=== PATIENT | female | born 1960 | race Caucasian/White ===

== ENCOUNTER 2016-03-24 16:49 | Inpatient (IN) | payer BC ==
[~2016-03-24] VITALS: Ht 162.6 cm; Wt 85.7 kg
--- NOTE | ~2016-03-24 | CO ---
ADMIT: 03/24/2016 RM/LOC: 510 [facility] MR#: [id number] [id number] [address] [address] AJ WIL[place] [phone] Consultation SEX: F AGE: 55 : 1960 DATE OF CONSULTATION: 03/25/2016 ATTENDING PHYSICIAN: Brad Abraham CONSULTING PHYSICIAN: Garo Gallegos DPM CHIEF COMPLAINT: Fever, chills, and ulceration of the feet bilaterally. HISTORY OF PRESENT ILLNESS: This patient is a 55-year-old diabetic female, who presented to [facility] with fever and chills, and the patient has had an episodic history of ulceration of the foot bilaterally. Approximately 1 to 2 years ago, the patient had apparently an acute Charcot event causing deformity of her foot. Since then, she has had plantar foot pain, left greater than right and subsequent ulceration. The patient states that approximately 2 to 3 weeks ago she developed the ulceration of the left foot and 1 month ago the ulcerations of the digits of the right foot. She believes they are looking better, but she has had significant issue with malaise and pain, and she also noticed a malodor to the left foot. She presented to the clinic and then was subsequently admitted. PAST MEDICAL HISTORY: Diabetes, hypothyroidism, congestive heart failure, hyperlipidemia, obesity, neuropathy, and chronic kidney disease. SOCIAL HISTORY: The patient works in a cafeteria. She is . She denies any tobacco or alcohol abuse. FAMILY HISTORY: Noncontributory. ALLERGIES: NO KNOWN DRUG ALLERGIES. MEDICATIONS: Please see the current list of her medications. LABORATORY DATA: Sodium 138, potassium 4.4, BUN 12, and creatinine 0.9. White count 8.1, hemoglobin 8.2, hematocrit 26.7, and platelets 404. Arterial and venous studies show no acute blockages or DVT. Culture shows multiple organisms on Gram stain. PHYSICAL EXAMINATION: VITAL SIGNS: Vital signs reviewed and noted to be stable. VASCULAR: DP and PT pulses are palpable bilaterally. Absent hair growth bilaterally. Moderate pitting edema to the foot and ankle bilaterally. Capillary refill time is approximately 4 seconds to the digits bilaterally. NEUROLOGIC: Light touch sensation is absent to the feet bilaterally. DERMATOLOGIC: The patient has an ulceration of the left plantar foot measuring 6.0 x 7.5 x 0.3 cm. The patient has a significant amount of loose necrotic skin, and after debridement, the deepest portion of the ulceration at the center measures 4.5 x 5.0 x 0.3 cm. It has a very fibrotic and malodorous wound base. The surrounding skin shows a rim of erythema, but no proximal tracking or streaking. No drainage was noted. On the right foot, there are 3 ADMIT: 03/24/2016 RM/LOC: 510 [facility] MR#: [id number] [address] [place] [phone] [address] WILSON [address] [place] [phone] Consultation SEX: F AGE: 55 : 1960 ulcerations, the right first digit measures 0.6 x 1.2 x 0.3 cm. The right 2nd digit measures 1.7 x 2.0 x 0.2 cm and the 3rd digit measures 1.6 x 0.4 x 0.2 cm. These 3 ulcerations are at the distal tips of the digits and have a fiber granular wound base. There is some erythema and edema to these digits, but no drainage identified. No proximal tracking or streaking. MUSCULOSKELETAL: The patient has a rocker bottom deformity, left greater than right. The patient also has contracture of digits bilaterally. The patient has some pain on palpation of the left plantar foot. X-RAY DATA: Three views of the foot show severe Charcot deformity of the Lisfranc joint with prominence of the plantar aspect. ASSESSMENT: 1. Diabetes. 2. Neuropathy. 3. Ulceration bilaterally. 4. Cellulitis. 5. Possible osteomyelitis. 6. Charcot arthropathy. 7. Chronic kidney disease. PLAN: We will recommend following the Vaseline gauze and dry dressing to the right digits as recommended by a wound care. We will switch to Dakin's soaked gauze to the left plantar foot. Sharp selective debridement was performed down to and including the subcutaneous tissue of the left foot using an 11 blade and pickup. No anesthesia was needed. Bleeding was controlled with direct pressure. Dry dressing was applied. As soon as the Dakin's is available, we will have this dressing changed daily or as needed. We will recommend an MRI and labs to determine if underlying osteo is present and is necessary to be ADMIT: 03/24/2016 RM/LOC: 510 [facility] MR#: [id number] [address] [address] AJ WILSON [address] [place] [phone] Consultation SEX: F AGE: 55 : 1960 debrided in the OR. We will hold any recommendations for OR debridement until the MRI results are completed. The patient is to be nonweightbearing on the left foot, and we will have physical therapy, helped with crutch training and help her with ambulation. We will recommend also dietary consult to perform diabetic education as well as nutrition recommendation. We will also recommend social services assistant to help with discharge planning as the patient may need IV antibiotics. On a long-term basis. We will leave recommendations for an Infectious Disease consult to Primary Care. We will follow up with these results as they become available. Discussed the diagnosis and treatment with the patient including the possibility of digit or limb loss. We will need special accommodative shoes created as an outpatient. She states understanding and will follow up with her. She is to continue to receive IV antibiotics. Garo Gallegos DPM/ graham JOB #: [id number] CC: Brad Abraham, Attending Physician Brad Abraham, Family Physician
--- NOTE | ~2016-03-24 | WND ---
ADMIT: 03/24/2016 RM/LOC: 510 [facility] MR#: [id number] [address] [address] AJ WILSON [place] [phone] Wound Care Clinic SEX: F AGE: 55 : 1960 DATE OF VISIT: 03/25/2016 TIME IN: 1210 hours. TIME OUT: 1240 hours. REASON FOR VISIT: Evaluation and treatment of bilateral foot ulcerations. Request for wound care from Dr. Brad Abraham. HISTORY OF PRESENT ILLNESS: This is a 55-year-old, white female, who was admitted to [facility] through the Family Practice Clinic on 03/24/2016. She presents with a 2 to 3 week history of generalized malaise with intermittent fevers, chills, and night sweats. She was evaluated in the clinic in January 2015 for ulcerations to her left foot. She said those essentially healed, but then, she started developing ulcerations on the toe tip of her right foot and developed a cellulitis that was treated. She states in the last week or two she has noticed a pain and discomfort on the left foot again. She denied any known trauma or inciting event. She just felt like she was getting more rundown and weak, and noticed an odor to her foot, so presented to clinic for further evaluation. She was admitted to [facility] and Wound Care was consulted. PAST MEDICAL HISTORY: 1. Diabetes mellitus type 2, diagnosed in July of 2015. 2. Hypothyroidism. 3. Diastolic congestive heart failure likely caused by her thyroid disorder and diabetes. 4. Hypertension. 5. Hyperlipidemia. 6. Previous morbid obesity but lost significant amount weight. 7. Chronic kidney disease. 8. Past history of hypomagnesemia. 9. History of diabetic neuropathic foot ulcers. ALLERGIES: No known medication allergies. CURRENT MEDICATIONS: Per the MAR. Please see the MAR for further details: 1. Children's aspirin. 2. Coreg. 3. Januvia. 4. Magnesium oxide. 5. Norvasc. 6. Synthroid. 7. Lovenox. 8. NovoLog. 9. Cleocin. 10.Levaquin. ADMIT: 03/24/2016 RM/LOC: 510 [facility] MR#: [id number] [address] [address] [address] WILSON [address] [place] [phone] Wound Care Clinic SEX: F AGE: 55 : 1960 11.Teflaro. PRN medications: 1. Glutose. 2. Hydrocodone/acetaminophen. 3. Maalox. 4. Surfak. 5. Glucagon. 6. Tylenol suppository. 7. D50. 8. D5NS. SOCIAL HISTORY: She is white female. She works at [employer]. Never smoked. Occasional social drinking. She lives in [place]. FAMILY HISTORY: Significant for diabetes in her parents and heart disease in parents. REVIEW OF SYSTEMS: She is examined in her hospital room where she is supine in bed with her legs elevated on pillows. She is alert and oriented x3. She denies any recent fever or chills. No nausea or vomiting. Her appetite is pretty good. She denies any cough, cold, or chest pain. She states her feet hurt up to a 7 when she is standing on them or walking, but when they are elevated, there is no pain at all. PHYSICAL EXAMINATION: VITAL SIGNS: Temperature 97.1, pulse is 86, respirations 16, O2 saturation on room air is 97%, blood pressure 137/67. Focused exam to the right lower extremity, shows a foot circumference 27 cm, ankle is 23.5 cm, and calf 20 cm, malleolus 31.5 cm. Posterior tibialis and dorsalis pedis is 2+. She does have scratches noted on her anterior calf. No erythema or open areas noted there. On her first toe of the right foot near where her toenail is a hard yellow callus that measures 1 cm x 2 cm. On the tip of the toe is an open area that measures 0.6 cm x 1.2 cm, depth of 0.3 cm with a mixed red and yellow base. No surrounding erythema or induration. To the tip of the second right toe is an open area that measures 1.7 cm x 2 cm which has an appearance of hypergranulation tissue, pale pink. There is serosanguineous drainage noted. To the tip of her third toe is an ulceration that measures 1.6 cm x 0.4 cm, depth of 0.2 cm of dark red dry wound base. No surrounding erythema or induration. Posterior tibialis and dorsalis pedis is 2+. Toes are warm with quick capillary refill. To the left lower extremity foot circumference 24.5 cm, ankle is 23.5 cm, and calf 20 cm, malleolus is 33.5 cm. Posterior tibialis and dorsalis pedis is 2+. On the sole of her foot is an area that measures 6 cm x 7.5 cm with a depth of 0.3 cm in various areas. This is a hardened and mushy brownish tissue with edges that are peeling. No current drainage noted. She does have what appears to be a Charcot deformity of both feet. ADMIT: 03/24/2016 RM/LOC: 510 [facility] MR#: [id number] [facility] [address] [address] AJ WILSON [address] [place] [phone] Wound Care Clinic SEX: F AGE: 55 : 1960 ASSESSMENT: Chronic diabetic neuropathic ulcerations plantar surface left foot and toe tips of the right first, second, and third toes. TREATMENT PLAN: The wounds were washed with warm soapy water, rinsed, and patted dry. Vaseline gauze was placed over the open areas on her toes as well as the sole of her left foot. This was then held in place with Kerlix wrap. She already has a consult out to Podiatry for possible debridement. Wound Care will continue with the Vaseline gauze, until the patient is evaluated by Podiatry. At that point, Wound Care will deferred to Podiatry for further treatment plans. Recommended they continue to elevate her legs above heart level on pillows with her heels floated. Thank you for allowing us to care for this patient. Lissett Najera APRN/ graham JOB #: [id number] CC: Brad Abraham, Attending Physician Brad Abraham, Family Physician
[~2016-03-24 16:49] MED LIST: ALDACTONE25 MG PO; GLUCOPHAGE-DPS500 MG PO; LIPITOR DPS10 MG PO; POTASSIUM CHLO20 ME2 PO; ZESTRIL DPS10 MG PO
--- NOTE | 2016-03-29 07:27 | HP ---
ADMIT: 03/24/2016 RM/LOC: 510 [facility] MR#: [id number] [address] [address] [place] [phone] History and Physical SEX: F AGE: 55 : 1960 DATE OF SERVICE: CHIEF COMPLAINT: Fevers, chills, night sweats with discomfort with her feet and odor over the last couple of weeks. HISTORY OF PRESENT ILLNESS: Aj is a 55-year-old, , white female, well known to myself, who is admitted to [facility] through the Family Practice Clinic on March 24, 2016. She presents with a 2 to 3-week history of generalized malaise with some intermittent fevers, chills, and night sweats. She states for the last month or two, she has had some intermittent foot pain and has failed to really seek care as it has been fairly episodic. She denies any known trauma or inciting event. She states she finally got to the point where she just felt like she was run down and was weak and noticed an odor on her feet, so she presented to the clinic for further evaluation and management. PAST MEDICAL HISTORY: Fairly well documented. Prior admission H and Ps are noted. She has diabetes mellitus type 2 diagnosed, a little less than a year disorder, along with hypothyroidism and had diastolic congestive heart failure, likely caused by her thyroid disorder and diabetes with overzealous initial thyroid administration along with longstanding hypertension and hyperlipidemia. She had previous morbid obesity, but has lost a significant amount of weight. She additionally had chronic kidney disease and has been followed in the past by Nephrology and has a creatinine clearance of around 61 on a 24-hour urine done in February 2016. MEDICATIONS: Include: 1. Lasix 80 mg daily. 2. Aspirin 81 mg daily. 3. Amlodipine 5 mg daily. 4. Hydroxyzine 25 mg q.i.d. p.r.n. itching. 5. Carvedilol 25 mg b.i.d. 6. Glipizide 5 mg b.i.d. 7. Januvia 100 mg daily. 8. Levothyroxine 100 mcg daily. 9. Mag oxide 400 mg b.i.d. ALLERGIES: NONE KNOWN. SOCIAL HISTORY: A 55-year-old, , white female. She drinks socially, but does not smoke. FAMILY HISTORY: Noncontributory. Other than that, a prior history of diabetes. REVIEW OF SYSTEMS: Remarkable for fevers, chills, and night sweats with generalized malaise, intermittent foot pain, and just generalized fatigue. She has some known degenerative changes and arthritis and has had longstanding foot problems, but has really worsened recently. Remainder review of systems ADMIT: 03/24/2016 RM/LOC: 510 [facility] MR#: [id number] [address] [address] AJ WILSON [address] [place] [phone] History and Physical SEX: F AGE: 55 : 1960 is negative. PHYSICAL EXAMINATION: VITAL SIGNS: Include a blood pressure 178/84, pulse of 107, temp of 99.9 with a weight of 188 pounds. Height is 64 inches with a BMI of 32.3 and O2 saturation of 98%. GENERAL APPEARANCE: A 55-year-old female who is alert, in no acute distress. Appears to feel slightly ill. HEENT: On exam, pupils reactive. TMs are normal. Throat unremarkable. NECK: Without nodes or masses. HEART: Regular with tachycardia noted. LUNGS: Clear. ABDOMEN: Soft, nontender, benign, obese. BREASTS: Deferred. : Deferred. RECTAL: Deferred. EXTREMITIES: Reveal erosions of the left toes and appears to be missing the tip of her toes on her left feet involving her first, second and third digit. She additionally has a large ulcer with central callus on the sole of her right foot. She has marked pes planus and degenerative changes in her feet with 3+ pedal edema with no obvious erythema of the lower extremities. No significant odor is noted. ASSESSMENT: 1. Cellulitis of the feet, rule out osteomyelitis. 2. Diabetes mellitus type 2, recently well controlled, diagnosed less than a year ago. 3. Hypothyroidism. 4. Chronic kidney disease, stage 2 to 3, previously seen by Nephrology. 5. Venous insufficiency with current 3+ edema. 6. Benign essential hypertension, previously well controlled with markedly elevated blood pressure and tachycardia noted along with diastolic congestive heart failure, chronic, and obesity. PLAN: We will admit her to the hospital. Obtain baseline labs including a lactic acid. We will obtain blood cultures and wound cultures. We will initiate Cleocin and Levaquin. We will hold her glipizide. Do Accu-Chek monitoring with sliding scale insulin. Check basic labs, obtain wound care and surgical consult. Obtain x-rays of her feet and probable MRI in the morning. We will proceed with further evaluation and management based on course during hospitalization. Brad Abraham MD/ graham JOB #: [id number] CC: Brad Abraham, Attending Physician Brad Abraham, Family Physician
--- NOTE | 2016-03-29 07:45 | OR ---
ADMIT: 03/24/2016 RM/LOC: 510 [facility] MR#: [id number] [address] [address] [place] [phone] Operative/Delivery Room Report SEX: F AGE: 55 : 1960 SURGERY DATE: 03/26/2016 SURGEON: Garo Gallegos DPM OPERATOR AUTOMATED PROCESS: None. PREOPERATIVE DIAGNOSES: 1. Cellulitis. 2. Osteomyelitis. 3. Abscess. 4. Ulceration. 5. Diabetes. POSTOPERATIVE DIAGNOSES: 1. Cellulitis. 2. Osteomyelitis. 3. Abscess. 4. Ulceration. 5. Diabetes. PROCEDURES: 1. Incision and drainage of the left foot. 2. Partial amputation of the right foot 1st digit. 3. Partial amputation of the right foot 2nd digit. 4. Amputation of the complete digit of the right 3rd digit. ANESTHESIA: 20 mL of 1% lidocaine plain. COMPLICATIONS: None. SPECIMENS: Soft tissue and bone of digits 1, 2, and 3 for routine pathology and culture and sensitivity of bilateral ulceration. ESTIMATED BLOOD LOSS: 25 mL. FLUID REPLACEMENTS: None. HEMOSTASIS: Pneumatic ankle tourniquet at 250 mmHg. INJECTIONS: None. MATERIALS: 4-0 Vicryl, 2-0 Vicryl, and 2-0 nylon. PREOPERATIVE STATEMENT: This patient was seen in the hospital for cellulitis, ulceration, and abscess. The patient was started on IV antibiotics. The patient had an abscess identified on MRI, which was determined to require an incision and drainage to prevent overwhelming infection and loss of limb or life. The patient was educated about the risks, benefits, and alternatives. The patient's questions were answered in detail, and the consent was noted to ADMIT: 03/24/2016 RM/LOC: 510 [facility] MR#: [id number] [address] [place], [place] [address] [place] [address] [place] [address] Operative/Delivery Room Report SEX: F AGE: 55 : 1960 be signed and placed on the chart. The H and P was up-to-date. The labs, EKGs, and x-rays were reviewed, and there were no contraindications to surgery at this time. OPERATIVE REPORT: This patient was brought back to the operating room under no sedation and placed on the operating table in the supine position. A well- padded ankle tourniquet was placed about the patient's ankles bilaterally. The time-out was performed. The site marking was noted. When all in agreement, the foot was prepped and draped in normal aseptic technique and the procedure was underway. Next, the pneumatic ankle tourniquet of the right foot was elevated. The ulcerations of digits 1, 2, and 3 were debrided. It was noted that the distal phalanx of the first digit was extremely necrotic and almost completely destroyed. This was debrided out down to the level of the head of the proximal phalanx. A bone cutter was then used to create a clean margin at the neck of the proximal phalanx. Irrigation was then performed using pulse lavage. The flap was then reshaped and reapproximated loosely with 4-0 Vicryl and 2-0 nylon. Next, attention was drawn to the 2nd digit where destruction of the distal and middle phalanx was identified. Debridement was performed back to approximately the mid shaft or neck of the proximal phalanx where healthy bone was identified. Again, the digit was irrigated with the Pulsavac and the flap reshaped and closed with 4-0 Vicryl and 2-0 nylon. The 3rd digit was showing osteonecrosis to the level of the metatarsophalangeal joint where the incision was created dorsally and exposure of the metatarsophalangeal joint was provided. The proximal phalanx was disarticulated and passed free from the surgical field. The wound edges were reshaped and loosely reapproximated again with 4-0 Vicryl and 2-0 nylon. The dressing was applied using Iodoform gauze and gauze Kerlix and an Colby wrap. The tourniquet was released, and attention was then drawn to the left foot. The ulceration of the plantar left foot showed a small tunnel at the 3 o'clock position. Blunt dissection was provided down to the level of the abscess, which was noted to be near the cuboid. With blunt dissection, rupture of a small vessel was encountered. This was then addressed using 4-0 Vicryl and 2- 0 Vicryl to provide hemostasis. After irrigation with saline through the depth of the ulceration and removal of nonviable tissue, the wound was packed ADMIT: 03/24/2016 RM/LOC: 510 [facility] MR#: [id number] [address] [address] AJ WILSON [address] [place] [phone] Operative/Delivery Room Report SEX: F AGE: 55 : 1960 with iodoform gauze, and gauze was applied in a bolster-type manner, and the Kerlix and Colby wrap were applied snuggly to provide pressure against the ulceration. Three liters were irrigated through the base of this ulceration with bacitracin using the Pulsavac. The snug dressing of the left foot is to be left intact for approximately 6 hours and then to be loosened by the nursing staff. There are orders written for pain control and for an H and H to monitor the patient's hemoglobin level. The patient is then to continue IV antibiotics by management of Infectious Disease. The nursing staff may reapply or reinforce the dressing as needed. We will see the patient in the morning and re-dress the foot with a more typical dressing. Lovenox is to be held for now. Garo Gallegos DPM/ graham JOB #: [id number] CC: Brad Abraham, Attending Physician Brad Abraham, Family Physician
[2016-03-30] MEDS ORDERED: INVANZ1 GM IV (10:45)
[2016-03-30] MEDS ORDERED: MAALOX DPS30 ML PO (10:46)
[2016-03-30] MEDS ORDERED: HYDROCODON-ACE1 EAC4 PO (10:46)
[2016-03-30] MEDS ORDERED: TYLENOL DPS325 MG PO (10:47)
[2016-03-30] MEDS ORDERED: SURFAK DPS240 MG PO (10:47)
[2016-03-30] MEDS ORDERED: COLACE-DPS100 MG PO (10:48)
[2016-03-30] MEDS ORDERED: FEOSOL-DPS325 MG PO (10:48)
--- NOTE | 2016-04-05 10:26 | CO ---
ADMIT: 03/24/2016 RM/LOC: 510 [facility] MR#: [id number] [address] [place] [id number] Consultation SEX: F AGE: 55 : 1960 DATE OF CONSULTATION: 03/26/2016 ATTENDING PHYSICIAN: Brad Abraham CONSULTING PHYSICIAN: Jayla Carmona MD REASON FOR CONSULT: Left foot cellulitis and ulcer. Thank you, Dr. Abraham, for the consult and involving me in this patient's care. HISTORY OF PRESENT ILLNESS: Ms. Loera is a 55-year-old woman with history of uncontrolled diabetes mellitus, who presented to the hospital, was complaining of left foot ulcer which she noticed around 1 week back. She also has right foot digit ulcers which were present since last 3 weeks. She noticed increased malodorous drainage and subjective fevers and chills, hence, presented to Dr. Abraham's clinic for further evaluation. She was seen by Dr. Gallegos who ordered an MRI and it is suggestive of possible abscess in the left foot and osteomyelitis. He did a bedside debridement and the cultures are growing Staphylococcus aureus. PAST MEDICAL HISTORY: Diabetes mellitus type 2, hypothyroidism, congestive heart failure, hypertension, hyperlipidemia, obesity, CKD. ALLERGIES: NO KNOWN DRUG ALLERGIES. SOCIAL HISTORY: She lives at home with her son. Denies any smoking or recreational drug use. Drinks alcohol occasionally. FAMILY HISTORY: Significant for diabetes mellitus in her parents. CURRENT MEDICATIONS: Include: 1. Aspirin. 2. Coreg. 3. Januvia. 4. Magnesium oxide. 5. Norvasc. 6. Synthroid. 7. Insulin sliding scale. 8. Clindamycin 600 every 6 hours. 9. Levaquin 500 mg once daily. 10.Vancomycin 1 g twice daily. REVIEW OF SYSTEMS: Ten-point review of systems negative except as mentioned in the HPI. PHYSICAL EXAMINATION: VITAL SIGNS: Current temperature 97.1, heart rate 81, blood pressure 152/63, respirations 16, 1-00% on room air. GENERAL: No acute distress. ADMIT: 03/24/2016 RM/LOC: 510 [facility] MR#: [id number] [address] [address] [place] [address] [place] [id number] Consultation SEX: F AGE: 55 : 1960 HEENT: Normocephalic and atraumatic. Extraocular movements intact. LYMPH: No palpable anterior/posterior, cervical, or supraclavicular lymphadenopathy. CHEST: Decreased breath sounds bilaterally. CARDIOVASCULAR: S1 and S2 heard. Regular rate and rhythm. ABDOMEN: Soft, nontender, and nondistended. Active bowel sounds. MUSCULOSKELETAL: There is a left plantar foot ulcer with significant amount of maceration and necrotic tissue and foul-smelling drainage. On the right foot, there are 3 ulcerations on the first, second, and third digit at the tips. PSYCH: Normal affect. Memory intact. DATA REVIEW: CBC today shows white count of 7.1, hemoglobin 8.4, platelets 414. BMP; creatinine of 0.8. Her ESR is 114 and CRP 4.94. Both feet culture is growing Staphylococcus aureus and additional Gram- positive organisms, likely anaerobes. MRI of the left foot showed marked inflammatory changes and 1.4 cm loculated enhancing fluid collection, likely developing abscess. There could be early osteomyelitis within medial and middle cuneiform. ASSESSMENT AND PLAN: 1. Left foot diabetic plantar ulcer. 2. Left foot possible abscess. 3. Left foot possible osteomyelitis. 4. Right foot digit ulcers. 5. Right foot digit questionable osteomyelitis. 6. Uncontrolled diabetes mellitus. 7. Congestive heart failure. ADMIT: 03/24/2016 RM/LOC: 510 [facility] MR#: [id number] 26[address] [facility] [address] [place] [address] [place] [address] Consultation SEX: F AGE: 55 : 1960 8. Hypothyroidism. PLAN: Her blood cultures are no growth to date. Her ulcer cultures are growing Staphylococcus aureus, pending sensitivity. At this time, I will stop the clindamycin and levofloxacin. Continue with IV vancomycin and I will start her on ampicillin sulbactam 3 g IV q.6 hours to cover microaerophilic anaerobes. I will narrow antibiotics depending on sensitivity. Discussed with Dr. Gallegos and he will probably take her for debridement in the OR. We will decide further management of antibiotics depending on the culture results and debridement. Thank you for the consult and I will continue to follow the patient. aJyla Carmona MD/ graham JOB #: [id number] CC: Brad Abraham, Attending Physician Brad Abraham, Family Physician
--- NOTE | 2016-05-23 15:25 | DS ---
ADMIT: 03/24/2016 RM/LOC: 510 [facility] MR#: [id number] [address] [address] [place] [address] General Discharge Summary SEX: F AGE: 55 : 1960 ADMISSION DATE: 03/24/2016 DISCHARGE DATE: 03/29/2016 INDICATION FOR HOSPITALIZATION: Aj is a 55-year-old, , white female, known to myself admitted to [facility] through the [facility] on March 24 with a 2- to 3-week history of fevers, chills, night sweats, and generalized malaise. She states her feet have been hurting her episodically. She denied any known trauma or inciting event. Evaluation showed her to have cellulitis rule out osteomyelitis and gangrene. Please see her admission H and P for further details regarding her history of present illness, past medical history, physical exam, and assessment at time of hospitalization. HOSPITAL COURSE: On admission, Aj was admitted to [facility]. IV Levaquin and Cleocin were started. Wound care consult and Podiatry consults were requested. Routine x-rays, cultures, lactic acid, and labs were obtained. Accu-Chek monitoring and sliding scale insulin were adjusted. Elevated blood pressures were noted, and carvedilol adjustments were made. Podiatry was formally consulted on March 25, and Venofer was added. Lower extremity venous Dopplers were obtained following Podiatry consultation. MRI of the lower extremities with and without contrast on the left foot were obtained. Social Service was additionally consulted. PICC line was ordered on the , and vancomycin adjustments were made. Clindamycin and Levaquin were discontinued by Infectious Disease, and Unasyn was added for gram- negative coverage. On March 16, the patient underwent incision and drainage of left foot with amputation of her 2nd and 3rd digits due to abscess with osteomyelitis. Vancomycin and Unasyn were discontinued on March 27 and imipenem 1 g once daily for 2 weeks was arranged and will follow up with Wound Care. On March 30, vital signs were stable. The patient was afebrile. It was felt that her cellulitis for fever with abscess and Charcot joints and osteomyelitis was improved. Iron was added. Arrangements for discharge to home with outpatient followup were arranged. DISCHARGE MEDICATIONS: Listed on her MAR. Please include a copy of her discharge medications at the time of discharge. She was discharged on Invanz 1 g IV daily with followup in 2 weeks with Infectious Disease. Diabetic medications include glipizide 5 mg p.o. b.i.d. additionally. She was to have Wound Care follow Infectious Disease and Podiatry follow at discharge with followup in 3 to 4 days with a hemoglobin, iron, and basic metabolic panel, and she was discharged on ferrous sulfate 325 mg b.i.d. for anemia. Please see her MAR for further med list. LABORATORY AND X-RAY DATA: Include March 29 white count 9.1, hemoglobin 7.9, platelet count of 385,000 with a March 27; white count of 8.7, hemoglobin 8.1, and platelet count of 441,000. On March 25; white count of 8.1, hemoglobin 8.2, and platelet count of 404,000. On March 24; white count of 13.6, hemoglobin 9.3 with platelet count of 246,000. Hemoccult x3 were negative on March 26, , and . March 29; sodium was 139, potassium 4.2, BUN of 11, creatinine 0.8 with glucose of 99, and on ADMIT: 03/24/2016 RM/LOC: 510 [facility] MR#: [id number] [address] [place] [address] General Discharge Summary SEX: F AGE: 55 : 1960 March 24; sodium 132, potassium 4.3 with a BUN of 12, creatinine 1.1 with glucose of 207, and lactic acid is 0.7. Blood sugars were monitored during hospitalization. B12 and folate were normal. TSH was 5.3 with a free T4 of 1.1. Blood cultures from March 24 showed no growth. Culture from March 27 from lung shows Staph aureus, sensitive to most antibiotics except penicillin. Other cultures confirmed same Staph aureus along with Strep mitis and viridans in the feet. Her right lower extremity shows inflammatory changes of the left foot with cellulitis and probable 1.4 cm abscess with severe degenerative changes with. Possible osteomyelitis. X-ray on March 24, shows large plantar soft tissue defect of the left foot with adjacent soft tissue swelling, midfoot bilateral demonstrate severe degenerative changes with lateral metatarsals, displacement of bony demineralizations with possible osteomyelitis, no evidence of arterial stenosis was noted on Dopplers on March 24. Venous Doppler showed no DVTs on March 25. FINAL DISCHARGE DIAGNOSES: Include cellulitis of the feet with osteomyelitis, abscess, ulcerations, rocker bottom foot, diabetes mellitus, and Charcot joints of the feet. Other diagnoses include: 1. Diabetes mellitus type 2. 2. Hypothyroidism. 3. Chronic kidney disease. 4. Venous insufficiency. 5. Benign essential hypertension. 6. Diastolic congestive heart failure. 7. Chronic exogenous obesity. PROCEDURES: Include amputations of 3 toes with surgical debridement of cellulitis with osteomyelitis and IV antibiotics. Fluid and electrolyte monitoring. Please see her hospital record for the details. Aj had a PICC line placed and arrangements for outpatient IV antibiotics at discharge. Brad Abraham MD/ [facility]ham JOB #: [id number] CC: Brad Abraham MD, Attending Physician Brad Abraham MD, Family Physician
[2016-11-05] MEDS ORDERED: GLUCOTROL DPS5 MG PO (08:18)
[2016-11-05] MEDS ORDERED: SYNTHROID100 MCG PO (08:18)
[2016-11-05] MEDS ORDERED: NORVASC DPS10 MG PO (08:19)
[2016-11-05] MEDS ORDERED: LASIX DPS40 MG PO (08:19)
[2016-11-05] MEDS ORDERED: MAG-OX400 MG PO (08:19)
[2016-11-05] MEDS ORDERED: COREG25 MG PO (08:19)
[2016-11-05] MEDS ORDERED: ASPIR-LOW81 MG PO (08:20)
[2016-11-05] MEDS ORDERED: JANUVIA100 MG PO (08:20)
[2016-11-05] MEDS ORDERED: LIPITOR DPS10 MG PO (08:21)
[2016-11-05] MEDS ORDERED: THERAPEUTIC MUL1 TAB (08:21)
== END 2016-03-29 14:49 | disposition home or self-care (01) | DRG 617 ==
LOC: 5MS 16:49
PROVIDERS: ADMIT Family Medicine
PROC: 0JBR0ZZ Excision of Left Foot Subcutaneous Tissue and Fascia, Open Approach (ICD-10-PCS; principal; 2016-03-25)
PROC: 0Y6R0Z1 Detachment at Right 2nd Toe, High, Open Approach (ICD-10-PCS; 2016-03-26)
PROC: 0JDR0ZZ Extraction of Left Foot Subcutaneous Tissue and Fascia, Open Approach (ICD-10-PCS; 2016-03-26)
PROC: 0Y6P0Z1 Detachment at Right 1st Toe, High, Open Approach (ICD-10-PCS; 2016-03-26)
PROC: 0Y6T0Z0 Detachment at Right 3rd Toe, Complete, Open Approach (ICD-10-PCS; 2016-03-26)
DX: E11.69 Type 2 diabetes mellitus with other specified complication (principal); M86.171 Other acute osteomyelitis, right ankle and foot; E11.22 Type 2 diabetes mellitus with diabetic chronic kidney disease; I50.32 Chronic diastolic (congestive) heart failure; I13.0 Hypertensive heart and chronic kidney disease with heart failure and stage 1 through stage 4 chronic kidney disease, or unspecified chronic kidney disease; M86.671 Other chronic osteomyelitis, right ankle and foot; L97.419 Non-pressure chronic ulcer of right heel and midfoot with unspecified severity; L03.116 Cellulitis of left lower limb; L03.115 Cellulitis of right lower limb; E11.621 Type 2 diabetes mellitus with foot ulcer; E11.65 Type 2 diabetes mellitus with hyperglycemia; E11.610 Type 2 diabetes mellitus with diabetic neuropathic arthropathy; B95.61 Methicillin susceptible Staphylococcus aureus infection as the cause of diseases classified elsewhere; D63.8 Anemia in other chronic diseases classified elsewhere; E03.9 Hypothyroidism, unspecified; E78.5 Hyperlipidemia, unspecified; I87.2 Venous insufficiency (chronic) (peripheral); E66.9 Obesity, unspecified; R00.0 Tachycardia, unspecified; M19.90 Unspecified osteoarthritis, unspecified site; N18.2 Chronic kidney disease, stage 2 (mild); Z79.82 Long term (current) use of aspirin